=== PATIENT | female | born 2000 | race Two or more races ===

== ENCOUNTER 2025-02-12 01:48 | Emergency (ER) | payer MEDICAID, SELFPAY ==
[2025-02-12 01:49] VITALS: BMI 23.5
--- NOTE | 2025-02-12 01:55 | EKG_ITS ---
[facility] Test Date: 2025-02-12 Pat Name: MADONNA MILLS Department: Room: - Gender: Female Design Verification Engineer: : [id number] Requested By: ED Temporary Provider Order Number: [id number] Reading MD: ED Temporary Provider Measurements Intervals [place] Rate: 61 P: 57 NH: 193 QRS: 86 QRSD: 92 T: 75 QT: 409 QTc: 413 Interpretive Statements SINUS RHYTHM No previous ECG available for comparison /store/S0/[id number].pdf
[2025-02-12 02:11] VITALS: BP 115/79; PULSE 66; RESP 19; TEMP 36.5; O2SAT 99
[2025-02-12] MEDS: NAPROXEN 250 MG TABLET 500 MG PO (02:50)
[2025-02-12 03:23] VITALS: RESP 18
--- NOTE | 2025-02-12 03:54 | PD.EDCHEST ---
ED Chest Pain RME/HPI General Chief Complaint: Chest Pain Stated Complaint: CHEST PAIN AND SOB Time Seen by Provider: 02/12/25 02:45 Arrival date/time: 02/12/25 01:48 24F with history of anxiety presents to ED with 1 day of central CP and SOB. Patient denies URI symptoms and emotional/triggering event. Limitations: no limitations Related Data Allergies Allergy/AdvReac Type Severity Reaction Status Date / Time No Known Allergies Allergy Verified 02/12/25 01:49 Review of Systems Review of Systems Systems Reviewed: All systems reviewed, normal except as documented Cardiovascular Cardiovascular: Reports as per HPI, Reports chest pain and Reports dyspnea Respiratory Respiratory: Reports dyspnea Past Medical History Social History SMOKING STATUS: Never smoker ED Exam General Limitations: Present no limitations General appearance: Present alert and in no apparent distress Head Head exam: Present atraumatic ENT ENT exam: Present normal exam, normal oropharynx and mucous membranes moist Neck Neck exam: Present normal inspection, full ROM and trachea midline Chest Chest inspection: Present symmetric chest wall rise and tenderness Respiratory Respiratory exam: Present normal lung sounds bilaterally Cardiovascular Cardiovascular exam: Present regular rate, normal rhythm and normal heart sounds Neurological Exam Neurological exam: Present alert and oriented X3 Psychiatric Psychiatric exam: Present normal affect and normal mood Skin Skin exam: Present warm, dry, intact and normal color Course Quality Measures none Orders Category Date Time Status EKG (ED ONLY) *Do not use* NOW Care 02/12/25 01:55 Completed EKG (ED Only) Stat Exams 02/12/25 01:55 Draft Naproxen [Naprosyn] Med 02/12/25 02:46 Discontinued 500 mg PO X1 ONE Vital Signs Vital signs: Vital Signs Temperature 97.7 F 02/12/25 02:11 Pulse Rate 66 02/12/25 02:11 Respiratory Rate 19 02/12/25 02:11 Blood Pressure 115/79 02/12/25 02:11 Pulse Oximetry (%) 99 02/12/25 02:11 Oxygen Delivery Method Room Air 02/12/25 02:11 O2 at 99% on RA and WNLs Chest Pain MDM Narrative MDM Narrative:: 24F with history of anxiety presents to ED with 1 day of central CP and SOB. Patient denies URI symptoms and emotional/triggering event. Physical exam reveals central chest wall tenderness. RRR. Clear lungs and normal WOB. Patient is afebrile, calm, and alert. EKG is NSR. Meds and marriage and family counselor given. Patient data External records reviewed:: None Clinical information provided by:: patient Social determinants that could affect healthcare access:: none Patient has the following chronic illnesses:: none How is presenting disease/condition affected by chronic disease/condition?: no chronic disease Evaluation data The following diagnostics were reviewed and interpreted by me:: EKG tracing(s) Lab and/or radiology exams considered but not ordered:: ordered Interpretation Summary: above Medications / Prescriptions Medications or Prescriptions considered but not ordered:: ordered Medication administrations:: Medication Administration History Discontinued Medications Naproxen (Naproxen 250 Mg Tablet) 500 mg PO X1 ONE Stop: 02/12/25 02:47 Last Admin: 02/12/25 02:50 Dose: 500 mg Documented By: CVL above Consultations Consultation(s) initiated? (list below): No Diagnosis Chest Pain Differential Diagnosis: fracture of rib, pneumothorax, stable angina, unstable angina pectoris, atypical chest pain, st elevation myocardial infarction, costochondritis, chest pain and biliary colic Most likely diagnosis given after review of the tests above:: costochondritis Admission Indicated Admission indicated?: not indicated Admission Request Was there a request for admission?: No Disposition Plan Disposition Plan: Discharge Discharge Attestation Discharge Attestation: The patient and all family members were given an opportunity to ask questions and understood the discharge instructions. Discharge instructions specifically effects, indications for sooner follow up or return to the emergency department, and the expected course of current diagnosis. Patient condition: Stable Discharge Plan Plan Patient Disposition: HOME (Self Care) Discharge Disposition comment: Stable Problem List Clinical Impression: Costochondritis Patient/Caregiver Discharge Instructions Education Materials: Costochondritis Additional Instructions: Please follow-up with PCP within 24-48 hours and return immediately if symptoms worsen. NSAIDs like ibuprofen tend to work better for this type of pain. Print Language: Nepali Stand Alone Forms: Patient Portal Info Letter HANK/RANDAL Supervising Physician LINH Supervising Physician: Dr. Atkinson
== END 2025-02-12 03:24 | disposition home or self-care (01) ==
LOC: SERX 03:06
PROVIDERS: Emergency Provider Emergency Medicine
DX: M94.0 Chondrocostal junction syndrome [Tietze] (principal)
CPT/HCPCS: 93005; 99282; A9270